=== PATIENT | male | born 1985 | race Caucasian/White ===

== ENCOUNTER → 2017-07-27 | Outpatient (CLI) | payer OTHER ==
[~2017-07-27] MED LIST: AMOX500 PO; CEPH500 PO; CYCL10 PO; Cyclobenzaprine5 MG PO; DIPATR PO; DIPH50 PO; HYDACE5; HYDACE5 PO; IBUP600 PO; NAPR250 PO; NAPR500 PO; Naprosyn500 MG PO; Norco 5-325 Ta1 EACH PO; OXYACE5T PO; PENICILLIN; PENVK500 PO; PRED20 PO; PROACE100 PO; PROM25 PO; RXCLIN PO; RXCYCL10 PO; RXHYDACE PO; RXOXYACE PO; RXPENVK250 PO; RXPROACE PO; Robaxin500 MG PO; SULTRIDS PO; TRAM50 PO; Ultram50 MG PO; Voltaren100 GM TOP
[2017-07-27 11:04] LABS: Specimen Source UR
[2017-07-28 13:16] LABS: Source URINE
== END | disposition home or self-care (01) ==
LOC: LAB 10:50
PROVIDERS: Family Medicine
DX: Z20.2 Contact with and (suspected) exposure to infections with a predominantly sexual mode of transmission (principal)
CPT/HCPCS: 87491; 87591

== ENCOUNTER → 2017-08-16 | Outpatient (CLI) | payer OTHER ==
[~2017-08-16] MED LIST changes: -Cyclobenzaprine5 MG PO; -Naprosyn500 MG PO; -Voltaren100 GM TOP
[2017-08-17 08:28] LABS: Source, Urine Voided
[2017-08-17 12:49] LABS: Bilirubin, Urine Neg (Neg); Blood, Urine Neg (Neg); Glucose Qualitative, Urine Neg (Neg); Ketones, Urine Neg (Neg); Leukocyte Esterase, Urine 1+ (Neg); Nitrite, Urine Neg (Neg); Protein, Urine Neg (Neg); Specific Gravity, Urine 1.005 (1.003-1.022); Urobilinogen, Urine NORM (Normal); pH, Urine 6.5 (5.0-8.0)
[2017-08-17 13:12] LABS: Appearance, Urine Clear (Clear)
[2017-08-17 13:13] LABS: Bacteria Not Seen /hpf; Color, Urine Pale Yellow (P-Yellow); Red Blood Cells, Urine Not Seen /hpf (0-2); Squamous Epithelial Cells Not Seen /hpf (Few); White Blood Cells, Urine 0-2 /hpf (0-5)
[2017-08-17 19:15] LABS: Specimen Source URINE
[2017-08-18 10:06] LABS: Source Urine
== END ==
LOC: LAB 19:15 → LAB SHORT 19:15
PROVIDERS: Nurse Practitioner Family
DX: R82.90 Unspecified abnormal findings in urine (principal)
CPT/HCPCS: 81001; 87086; 87491; 87591

== ENCOUNTER 2018-04-27 04:07 | Emergency (ER) | payer OTHER ==
[~2018-04-27] VITALS: Ht 180.3 cm; Wt 74.8 kg
[~2018-04-27 04:07] MED LIST changes: +Cyclobenzaprine5 MG PO; +Naprosyn500 MG PO; +Voltaren100 GM TOP
[2018-04-27] MEDS ORDERED: Bactrim Ds Tab1 EACH PO (05:28)
[2018-04-27] MEDS ORDERED: Ciprodex Otic7.5 ML BOTHEARS (05:28)
== END 2018-04-27 05:53 | disposition home or self-care (01) ==
LOC: ER 04:07
DX: H60.11 Cellulitis of right external ear (principal); F17.210 Nicotine dependence, cigarettes, uncomplicated; Z88.5 Allergy status to narcotic agent; F43.10 Post-traumatic stress disorder, unspecified
CPT/HCPCS: 99283

== ENCOUNTER 2018-04-28 05:37 | Emergency (ER) | payer OTHER ==
[~2018-04-28] VITALS: Ht 180.3 cm; Wt 72.6 kg
[~2018-04-28 05:37] MED LIST changes: +Bactrim Ds Tab1 EACH PO; +Ciprodex Otic7.5 ML BOTHEARS
== END 2018-04-28 07:09 | disposition home or self-care (01) ==
LOC: ER 05:37
DX: H60.91 Unspecified otitis externa, right ear (principal); F17.210 Nicotine dependence, cigarettes, uncomplicated
CPT/HCPCS: 99282

== ENCOUNTER 2018-05-29 13:18 | Emergency (ER) | payer OTHER ==
[~2018-05-29] VITALS: Ht 177.8 cm; Wt 70.3 kg
[2018-05-29] MEDS ORDERED: Monodox100 MG PO (14:01)
[2018-05-29] MEDS ORDERED: MUPIROCIN1 GM TOP (14:01)
[2018-05-29] MEDS ORDERED: Ciprodex Otic7.5 ML BOTHEARS (14:01)
== END 2018-05-29 14:11 | disposition home or self-care (01) ==
LOC: ER 13:18
DX: H66.41 Suppurative otitis media, unspecified, right ear (principal); H60.91 Unspecified otitis externa, right ear; H60.11 Cellulitis of right external ear; M10.9 Gout, unspecified; F43.10 Post-traumatic stress disorder, unspecified; F17.210 Nicotine dependence, cigarettes, uncomplicated; Z88.5 Allergy status to narcotic agent; Z79.899 Other long term (current) drug therapy
CPT/HCPCS: 10160; 99283-25

== ENCOUNTER → 2019-06-06 | Outpatient (CLI) | payer OTHER ==
[~2019-06-06] MED LIST changes: +MUPIROCIN1 GM TOP; +Monodox100 MG PO
[2019-06-13 07:08] LABS: CHLAMYDIA TRACHOMATIS, NAA Negative (Negative); NEISSERIA GONORRHOEAE, NAA Negative (Negative)
== END ==
LOC: LAB SHORT 11:50 → LAB SRC 11:50 → LAB SHORT 06-07 11:50
PROVIDERS: Nurse Practitioner Family
DX: A56.2 Chlamydial infection of genitourinary tract, unspecified (principal)
CPT/HCPCS: 87491; 87591